=== PATIENT | male | born 1980 | race Caucasian/White ===

== ENCOUNTER 2021-03-23 09:46 | Emergency (ER) | payer OTHER, BC ==
[~2021-03-23] VITALS: Ht 180.3 cm; Wt 79.4 kg
== END 2021-03-23 11:01 | disposition home or self-care (01) ==
LOC: ED 09:46
DX: S09.90XA Unspecified injury of head, initial encounter (principal); S39.012A Strain of muscle, fascia and tendon of lower back, initial encounter; S30.0XXA Contusion of lower back and pelvis, initial encounter; Z88.0 Allergy status to penicillin; W01.10XA Fall on same level from slipping, tripping and stumbling with subsequent striking against unspecified object, initial encounter; Y99.0 Civilian activity done for income or pay
CPT/HCPCS: 99283